=== PATIENT | female | born 1945 | race Caucasian/White ===

== ENCOUNTER 2018-03-05 09:56 | Emergency (ER) | payer OTHER ==
[~2018-03-05] VITALS: Ht 167.6 cm; Wt 99.8 kg
[~2018-03-05 09:56] MED LIST: ALTACE5 MG; ASA81 MG PO; METFORMIN HCL500 MG PO
[2018-03-05] MEDS ORDERED: METFORMIN HCL500 MG (10:42)
[2018-03-05] MEDS ORDERED: ASA81 MG (10:43)
== END 2018-03-05 11:45 | disposition home or self-care (01) ==
LOC: ER 09:56
DX: I89.0 Lymphedema, not elsewhere classified (principal)